=== PATIENT | female | born 1965 | race Caucasian/White ===

== ENCOUNTER 2023-05-25 17:44 | Emergency (ER) | payer OTHER, SELFPAY ==
[2023-05-25 17:57] VITALS: BP 134/92
[2023-05-25 18:42] LABS: % Basophils 0.8 % (0-2); % Eosinophils 1.6 % (0-6); % Immature Granulocytes 0.3 % (0-0.5); % Lymphocytes 24.3 % (20.5-51.1); % Monocytes 5.7 % (1.7-9.3); % Neutrophils 67.3 % (42.2-75.2); Absolute Basophils 0.1 10^3/uL (0-0.2); Absolute Eosinophils 0.1 10^3/uL (0-0.7); Absolute Lymphocytes 2.1 10^3/uL (1.2-3.4); Absolute Monocytes 0.5 10^3/uL (0.1-0.6); Absolute Neutrophils 5.9 10^3/uL (1.4-6.5); Hematocrit 38.7 % (37.0-47.0); Hemoglobin 13.2 g/dL (12.0-16.0); Mean Corp Hgb Conc. 34.1 g/dL (33.0-37.0); Mean Corpuscular Hgb 31.4 pg (27.0-31.0); Mean Corpuscular Volume 92.1 fL (81.0-99.0); Mean Platelet Volume 10.3 fL (7.4-10.4); Nucleated Red Blood Cells % 0 %; Platelet Count 232 10^3/uL (130-400); Red Cell Dist. Width 12.3 % (11.5-14.5); Urine Albumin Trace (Neg - Trace); Urine Bilirubin Negative (Negative); Urine Character Slightly Cloudy (Clear); Urine Color Yellow; Urine Glucose Negative (Negative); Urine Ketone Negative (Negative); Urine Leukocyte 2+ (Negative); Urine Nitrite Negative (Negative); Urine Occult Blood 2+ (Negative); Urine Specific Gravity 1.015 (<1.030); Urine Urobilinogen Negative (Neg - 1+); White Blood Cell Count 8.7 10^3/uL (4.8-10.8)
[2023-05-25 18:48] LABS: Urine Bacteria Many (Negative); Urine Red Blood Cell 0-2 /HPF (0-2)
[2023-05-25 18:54] LABS: ALT (SGPT) 21 U/L (0-35); AST (SGOT) 23 U/L (14-36); Albumin 4.4 g/dl (3.5-5.0); Alkaline Phosphatase 69 U/L (38-126); Blood Urea Nitrogen 15 mg/dl (7-17); Calcium 9.9 mg/dl (8.4-10.2); Carbon Dioxide 26 mmol/L (22-30); Chloride 99 mmol/L (98-107); Glucose 99 mg/dl (70-99); Potassium 4.2 mmol/L (3.5-5.1); Sodium 136 mmol/L (135-145); Total Bilirubin 0.6 mg/dl (0.2-1.3); Total Protein 6.9 g/dl (6.3-8.2); eGFR > 60.00
[2023-05-25 18:55] LABS: Lipase 150 U/L (23-300)
[2023-05-25 18:57] VITALS: BP 136/83
[2023-05-25 19:00] VITALS: BP 129/78
--- NOTE | 2023-05-25 19:29 | ED.GENMED ---
History of Present Illness
General
Chief Complaint: Abdominal Symptoms
Source: patient
Exam Limitations: none
Time Seen by Provider: 05/25/23 18:44
Nursing documentation reviewed up to this point in time: agreed with
Travel History
Have you had any contact with someone who has COVID-19?: No
Do you have any symptoms of coronavirus? Fever > 100 degrees, chills, cough, shortness of breath, sore throat, loss of taste or smell, muscle aches, or headache?: No
History of Present Illness
History of Present Illness:
57 yo female w h/o HTN, HLD, hysterectomy, appendectomy, presents stating R side abdominal 10/10 stabbing pains from 2:30 p.m. to 6:00 pm. States the pain just eased up about half hour ago and is now 3/10. Denies fever or chills. Denies N/V/D/C.
Denies CP/SOB. States pain is worse with sitting. She had similar symptoms 2 months ago with nausea and belching but the pain was not as bad.
Past History
Past History
ED Past Medical History: HTN, Hypercholesterolemia and Hypothyroidism
ED Past Surgical History: Appendectomy, Gynecological (Hysterectomy) and Orthopedic
Social History
Tobacco: Non-smoker
Alcohol: Occasional
Personal:
Living: with family
Employment: Employed
Review of Systems
Review of Systems
Allergies reviewed?: Yes
All Other Systems: ROS reviewed and negative except as documented in HPI and ROS
Constitutional: Denies fever
Respiratory: Denies trouble breathing
Cardiac: Denies chest pain
ABD/GI: Reports abdominal pain; Denies nausea, vomiting, diarrhea, constipated or anorexia
: Denies dysuria, difficulty voiding or urgency
Musculoskeletal: Reports no symptoms
Skin: Reports no symptoms
Neurological: Reports no symptoms
Phy Exam
Physical Exam
Physical Exam:
GENERAL: No acute distress. A&Ox3.
CONSTITUTIONAL: Afebrile.
EYES: Clear, conjunctivae normal
ENMT: moist mucus membranes, Pharynx nl
RESPIRATORY: Regular respirations, nonlabored, lungs clear.
CARDIOVASCULAR: Regular rate and rhythm, no murmurs, no rubs.
GI: Soft, mild tenderness right side abdomen, no guarding, nondistended, normal BS
MUSCULOSKELETAL: Moves with ease. Well perfused.
SKIN: Warm, dry, pink
PSYCH: Normal mood and affect. Well kept, interactive and appropriate
NEUROLOGIC: Awake, alert and oriented. No focal neurological deficits
Course
Orders/Labs/Results
Orders:
Orders
05/25/23 18:15
Complete Blood Count/With Diff Urgent
Comprehensive Metabolic Panel Urgent
Lipase Urgent
Urinalysis Reflex To Culture Urgent
Date Specimen was Collected: 05/25/23
Time Specimen was Collected: 18:00
Urine Microscopic Reflex Cult Urgent
Urine Culture Urgent
WILEY Source: U
Specimen Description:
Date Specimen was Collected: 05/25/23
Time Specimen was Collected: 18:00
05/25/23 19:15
CT Abd/Pel (IV only)-DH only Urgent
Comment:
Reason For Exam: R side abd pain
Abnormal Lab Results
05/25/23
18:15
MCH 31.4 H pg
(27.0-31.0)
Ur Occult Blood Reflex 2+ A
(Negative)
Leukocyte Esterase Rfl 2+ A
(Negative)
Urine WBC (Reflex) 11-15 A /HPF
(0-5)
Urine Bacteria (Reflex) Many A
(Negative)
05/25/23 18:15
05/25/23 18:15
Vital Signs
Initial and Last Documented VS:
Initial Vital Signs
Temp Pulse Resp BP Pulse Ox
98.4 F 89 16 134/92 98
05/25/23 17:57 05/25/23 17:57 05/25/23 17:57 05/25/23 17:57 05/25/23 17:57
Last Documented Vital Signs
Temp Pulse Resp BP Pulse Ox
98.3 F 88 18 99/56 95
05/25/23 22:22 05/25/23 22:22 05/25/23 22:22 05/25/23 22:22 05/25/23 22:22
MDM/Problems Addressed
Differential Diagnosis Includes:
colitis, constipation, UTI, Kidney stone
MDM/Problems Addressed:
57 yo female w h/o HTN, HLD, hysterectomy, appendectomy, presents stating R side abdominal 10/10 stabbing pains from 2:30 p.m. to 6:00 pm. States the pain just eased up about half hour ago and is now 3/10. Denies fever or chills. Denies N/V/D/C.
Denies CP/SOB. States pain is worse with sitting. She had similar symptoms 2 months ago with nausea and belching but the pain was not as bad.
Afebrile, NAD
05/25/2023 2157 PM
CBC normal
CMP normal
Lipase normal
UA: 2+ occult blood, 2+ leukocyte Estrace, WBCs 11-[address] abdomen pelvis, radiology report read: IMPRESSION:
No CT evidence for an acute inflammatory process in the abdomen or pelvis. Colonic diverticulosis, without evidence for acute diverticulitis. Surgically absent appendix.
Patient has had no further episodes of pain, right side abdomen remains mildly tender
Much improved, stable for discharge
Given copy of CT results, labs
Ambulated out with normal gait at discharge
*Critical Care Note
Total Time (30-74mins, 75-104mins- exclusive of procedures): Not Applicable
ED Attending Note
-
Portions of this chart may have been created with voice recognition software.� Occasional wrong word or��sound alike� substitutions may have occurred due to the inherent limitations of voice recognition software.
Discharge Plan
Departure
Patient Disposition: Home (Routine Discharge)
Date of Disposition: 05/25/23
Time of Disposition: 22:04
Patient with high blood pressure during this ER visit?: No
Condition: Good
Discharge Problem:
Abdominal pain
Instructions: Abdominal Pain
Prescriptions:
No Action
cpeljqzzef-ybwppjrewijqe-brsd [Fioricet] 50-300-40 mg capsule
1 cap PO Q8H PRN (Reason: headache) Qty: 12 0RF
Referrals:
Angelic Valdez DO [Family Provider] -
Activity Restrictions/Additional Instructions:
As we discussed, there is nothing worrisome in your workup here today. Nothing to explain your symptoms.
Return here at any time if abdominal pain gets worse or is accompanied with vomiting, fever, bloody diarrhea.
Interventions
Interventions:
*Risk Screen - Suicide Last Done: 05/25/23 19:01
*General Assessment Last Done: 05/25/23 19:01
*Neglect/Abuse Screening Last Done: 05/25/23 19:01
ED- Fall Risk Assessment Last Done: 05/25/23 19:01
*ED COVID-19 Vaccine History Last Done: 05/25/23 17:57
*Nursing Disposition Last Done: 05/25/23 22:23
GA-Uzpcvt-Fjlxqgaqwq Assessment Last Done: 05/25/23 19:01
Discharge Date and Time
Discharge Date/Time: 05/25/23 22:29
[2023-05-25 21:00] VITALS: BP 154/97
[2023-05-25 22:22] VITALS: BP 99/56
== END 2023-05-25 22:29 | disposition home or self-care (01) ==
LOC: EMR 17:44
PROVIDERS: EMERGENCY PHYSICIAN Emergency Medicine; FAMILY PHYSICIAN Family Medicine
DX: R10.9 Unspecified abdominal pain (principal); I10 Essential (primary) hypertension; E78.00 Pure hypercholesterolemia, unspecified
CPT/HCPCS: 99285; 74177; 80053; 81003; 81015; 83690; 85025; 87086; Q9967